=== PATIENT | male | born 2000 | race Caucasian/White ===

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

== ENCOUNTER 2022-11-25 18:26 | Outpatient (REF) | payer BC, SELFPAY | END 2022-11-25 18:27 | disposition home or self-care (01) | LOC: LBN 18:26 | PROVIDERS: PCP Nurse Practitioner Family; Visit Provider Nurse Practitioner Family | DX: J02.9 Acute pharyngitis, unspecified (principal) | CPT/HCPCS: 87070 ==

== ENCOUNTER 2022-12-13 03:04 | Outpatient (CLI) | payer BC, SELFPAY ==
[2022-12-13 14:10] LABS: Calculated LDL 146 mg/dL (<100); Cholesterol 219 mg/dL (<200); HDL Cholesterol 58 mg/dL (40-60); Triglyceride 76 mg/dL (<150)
[2022-12-13 14:19] LABS: Hemoglobin A1C 5.1 % (<5.7)
== END 2022-12-13 03:05 | disposition home or self-care (01) ==
LOC: LBO 03:04
PROVIDERS: PCP Nurse Practitioner Family; Visit Provider Nurse Practitioner Family
DX: Z13.220 Encounter for screening for lipoid disorders (principal); Z13.1 Encounter for screening for diabetes mellitus
CPT/HCPCS: 36415; 80061; 83036

== ENCOUNTER 2025-02-26 21:04 | Outpatient (REF) | payer OTHER, SELFPAY ==
[2025-02-26 21:40] LABS: TSH (W/Ref FT4) 1.79 uIU/mL (0.36-3.74)
== END 2025-02-26 21:05 | disposition home or self-care (01) ==
LOC: LBN 21:04
PROVIDERS: PCP Nurse Practitioner Family; Visit Provider Nurse Practitioner Family
DX: R68.89 Other general symptoms and signs (principal)
CPT/HCPCS: 84443